=== PATIENT | male | born 2000 | race Two or more races ===

== ENCOUNTER → 2025-03-07 | Emergency (ER) | payer OTHER ==
[~2025-03-07] VITALS: Ht 167.6 cm; Wt 55.8 kg
[~2025-03-07] MED LIST: CARAFATE1 GM PO; FAMOTIDINE/PF 20 MG/2 ML VIAL IV ONE; FAMOTIDINE/PF 20 MG/2 ML VIAL ONE; FLONASE16 GM; ONDANSETRON HCL 2 MG/ML VIAL IV ONE; ONDANSETRON HCL 2 MG/ML VIAL ONE; ONDANSETRON ODT4 MG PO; PEPCID AC10 MG; PEPCID AC20 MG PO
[2025-03-07 15:40] LABS: BASO % 0.4 % (0.1-1.2); EOS # 0.07 (0.04-0.54); EOS % 1.3 % (0.7-7.0); HEMATOCRIT 42.6 % (40.1-51.0); HEMOGLOBIN 14.4 g/dL (13.7-17.5); LYMPH # 1.45 (1.18-3.74); MONO # 0.45 (0.24-0.82); MONO % 8.1 % (4.7-12.5); NEUT # 3.58 (1.56-6.13); PLATELET COUNT 212 K/uL (163-369); RED BLOOD COUNT 4.96 M/uL (4.63-6.08); RED CELL DISTRIBUTION WIDTH 11.9 % (11.6-14.4)
[2025-03-07 16:08] LABS: ALBUMIN 3.9 gm/dL (3.4-5.0); BILIRUBIN TOTAL 0.73 mg/dL (0.3-1.2); CALCIUM 8.9 mg/dL (8.5-10.1); CREATININE SERUM 1.1 mg/dL (0.70-1.30); GFR 82.24; GLOBULINA 2.8 G/DL (2.4-3.5); POTASSIUM 3.97 mEq/L (3.5-5.1); TOTAL PROTEIN 6.7 gm/dL (6.4-8.2)
[2025-03-07 16:25] LABS: COVID-19 AG NEGATIVE (NEGATIVE)
[2025-03-07 16:27] LABS: INFLUENZA A AG NEGATIVE (NEGATIVE); INFLUENZA B AG NEGATIVE (NEGATIVE)
== END | disposition home or self-care (01) ==
LOC: ER 14:11
PROVIDERS: General Practice
DX: K29.70 Gastritis, unspecified, without bleeding (principal); R53.81 Other malaise; Z20.822 Contact with and (suspected) exposure to COVID-19

== ENCOUNTER → 2025-03-13 | Emergency (ER) | payer OTHER ==
[~2025-03-13] VITALS: Ht 167.6 cm; Wt 56.7 kg
[~2025-03-13] MED LIST changes: -FAMOTIDINE/PF 20 MG/2 ML VIAL IV ONE; -FAMOTIDINE/PF 20 MG/2 ML VIAL ONE; +KETOROLAC TROMETHAMINE 30 MG VIAL IM ONE; +KETOROLAC TROMETHAMINE 30 MG VIAL ONE; -ONDANSETRON HCL 2 MG/ML VIAL IV ONE; -ONDANSETRON HCL 2 MG/ML VIAL ONE; +TUSSIN DM LIQU118 ML PO; +ZYRTEC10 MG PO; +hydrOXYzine PAMOATE 25 MG CAPSULE PO ONE
[2025-03-13 19:05] LABS: BASO % 0.5 % (0.1-1.2); EOS # 0.08 (0.04-0.54); EOS % 1.2 % (0.7-7.0); HEMATOCRIT 48.6 % (40.1-51.0); HEMOGLOBIN 16.9 g/dL (13.7-17.5); LYMPH % 21.2 % (19.3-53.1); MEAN CORPUSCULAR HEMOGLOBIN 29.3 pg (25.6-32.2); MONO # 0.44 (0.24-0.82); MONO % 6.7 % (4.7-12.5); NEUT # 4.62 (1.56-6.13); NEUT % 70.1 % (34.0-71.1); PLATELET COUNT 268 K/uL (163-369); RED BLOOD COUNT 5.76 M/uL (4.63-6.08); RED CELL DISTRIBUTION WIDTH 11.6 % (11.6-14.4)
[2025-03-13 19:23] LABS: COVID-19 AG POSITIVE (NEGATIVE); INFLUENZA A AG NEGATIVE (NEGATIVE); INFLUENZA B AG NEGATIVE (NEGATIVE)
[2025-03-13 19:24] LABS: ALBUMIN 4.8 gm/dL (3.4-5.0); BILIRUBIN TOTAL 0.89 mg/dL (0.3-1.2); CALCIUM 9.9 mg/dL (8.5-10.1); CREATININE SERUM 1.08 mg/dL (0.70-1.30); GLOBULINA 3.4 G/DL (2.4-3.5); POTASSIUM 4.29 mEq/L (3.5-5.1); TOTAL PROTEIN 8.2 gm/dL (6.4-8.2)
== END | disposition home or self-care (01) ==
LOC: ER 15:13
PROVIDERS: Preventive Medicine Public Health & General Preventive Medicine
DX: U07.1 COVID-19 (principal); R07.89 Other chest pain

== ENCOUNTER 2025-06-12 19:59 | Emergency (ER) | payer OTHER ==
[~2025-06-12] VITALS: Ht 167.6 cm; Wt 58.1 kg
[~2025-06-12 19:59] MED LIST changes: -KETOROLAC TROMETHAMINE 30 MG VIAL IM ONE; -KETOROLAC TROMETHAMINE 30 MG VIAL ONE; -hydrOXYzine PAMOATE 25 MG CAPSULE PO ONE
[2025-06-12] MEDS ORDERED: KETOROLAC TROMETHAMINE 15 MG VIAL IV STA (22:52)
[2025-06-12] MEDS ORDERED: FAMOTIDINE/PF 20 MG/2 ML VIAL IV PUSH STA (22:52)
[2025-06-12] MEDS ORDERED: KETOROLAC TROMETHAMINE 30 MG VIAL ONE (23:32)
[2025-06-12] MEDS ORDERED: FAMOTIDINE/PF 20 MG/2 ML VIAL ONE (23:33)
== END 2025-06-13 01:16 | disposition home or self-care (01) ==
LOC: ER 19:59
DX: R07.89 Other chest pain (principal)
CPT/HCPCS: 36415; 71046; 96365; 99283; J1885

== ENCOUNTER 2025-06-15 18:48 | Emergency (ER) | payer OTHER ==
[~2025-06-15] VITALS: Ht 167.6 cm; Wt 58.1 kg
[2025-06-15] MEDS ORDERED: METHYLPREDNISOLONE SOD SUCC 125 MG VIAL IV ONE (19:30)
[2025-06-15] MEDS ORDERED: LEVALBUTEROL HCL 1.25 MG/3 ML SOLUTION IH ONE ×2 (19:30→20:09)
[2025-06-15] MEDS ORDERED: METHYLPREDNISOLONE SOD SUCC 125 MG VIAL ONE (20:26)
[2025-06-15 20:48] LABS: BASO % 0.3 % (0.1-1.2); EOS # 0.10 (0.04-0.54); EOS % 1.6 % (0.7-7.0); LYMPH # 1.95 (1.18-3.74); LYMPH % 32.1 % (19.3-53.1); MEAN PLATELET VOLUME 8.90 fl (9.4-12.4); MONO # 0.51 (0.24-0.82); MONO % 8.4 % (4.7-12.5); NEUT # 3.48 (1.56-6.13); NEUT % 57.4 % (34.0-71.1); RED CELL DISTRIBUTION WIDTH 11.4 % (11.6-14.4)
[2025-06-15 20:58] LABS: ABG PH 7.446 (7.35-7.45); ABG PO2 101.5 mmHg (80-100); BICARBONATE 23.4 mmol/l (23-25)
[2025-06-15 20:59] LABS: o2 21 %
[2025-06-15 21:21] LABS: ALT/SGPT 20.0 U/L (12-78); AST/SGOT 20.0 U/L (15-37); BILIRUBIN TOTAL 0.43 mg/dL (0.3-1.2); BUN CREA RATIO 15.0 (7.0-25.0); CREATININE SERUM 1.15 mg/dL (0.70-1.30); GFR 77.48; GLOBULINA 3.1 G/DL (2.4-3.5); GLUCOSE FASTING 98.0 mg/dL (65-100); OSMOLALITY SERUM 283.0 MOSM/KG (275-295)
[2025-06-15 21:40] LABS: COVID-19 AG NEGATIVE (NEGATIVE)
[2025-06-15] MEDS ORDERED: NORFLEX100MG PO (22:49)
[2025-06-15] MEDS ORDERED: LEVALBUTER0.63 MG/3 IH (22:49)
== END 2025-06-15 23:05 | disposition home or self-care (01) ==
LOC: ER 18:49
PROVIDERS: General Practice
DX: R07.81 Pleurodynia (principal); Z20.822 Contact with and (suspected) exposure to COVID-19; Z87.09 Personal history of other diseases of the respiratory system

== ENCOUNTER 2025-06-23 18:37 | Emergency (ER) | payer OTHER ==
[~2025-06-23] VITALS: Ht 167.6 cm; Wt 63.5 kg
[~2025-06-23 18:37] MED LIST changes: +LEVALBUTER0.63 MG/3 IH; +NORFLEX100MG PO
[2025-06-23] MEDS ORDERED: METHYLPREDNISOLONE SOD SUCC 125 MG VIAL IV ONE (20:15)
[2025-06-23] MEDS ORDERED: BENZONATATE 100 MG CAPSULE PO ONE (20:30)
[2025-06-23] MEDS ORDERED: METHYLPREDNISOLONE SOD SUCC 125 MG VIAL ONE (21:17)
[2025-06-23 21:54] LABS: BASO % 0.2 % (0.1-1.2); EOS # 0.12 (0.04-0.54); EOS % 1.4 % (0.7-7.0); LYMPH # 2.13 (1.18-3.74); LYMPH % 24.3 % (19.3-53.1); MEAN PLATELET VOLUME 8.80 fl (9.4-12.4); MONO # 0.61 (0.24-0.82); MONO % 7.0 % (4.7-12.5); NEUT # 5.86 (1.56-6.13); NEUT % 66.9 % (34.0-71.1); RED CELL DISTRIBUTION WIDTH 11.2 % (11.6-14.4)
[2025-06-24 00:23] LABS: COVID-19 AG NEGATIVE (NEGATIVE)
[2025-06-24 01:19] LABS: ALT/SGPT 33.0 U/L (12-78); AST/SGOT 26.0 U/L (15-37); BILIRUBIN TOTAL 0.72 mg/dL (0.3-1.2); BUN CREA RATIO 15.0 (7.0-25.0); CREATININE SERUM 1.07 mg/dL (0.70-1.30); GFR 84.2; GLOBULINA 3.4 G/DL (2.4-3.5); GLUCOSE FASTING 129.0 mg/dL (65-100); OSMOLALITY SERUM 279.0 MOSM/KG (275-295)
== END 2025-06-24 03:58 | disposition home or self-care (01) ==
LOC: ER 18:37
PROVIDERS: General Practice
DX: J06.9 Acute upper respiratory infection, unspecified (principal); M94.0 Chondrocostal junction syndrome [Tietze]; R05.8 Other specified cough; R07.9 Chest pain, unspecified; R05.9 Cough, unspecified; Z20.822 Contact with and (suspected) exposure to COVID-19

== ENCOUNTER 2025-07-19 02:03 | Emergency (ER) | payer OTHER ==
[~2025-07-19] VITALS: Ht 167.6 cm; Wt 54.4 kg
[2025-07-19] MEDS ORDERED: FAMOTIDINE/PF 20 MG/2 ML VIAL IV PUSH STA (03:58)
[2025-07-19] MEDS ORDERED: HYOSCYAMINE SULFATE 0.125 MG TAB.SUBL SL STA (03:58)
[2025-07-19] MEDS ORDERED: ONDANSETRON HCL 2 MG/ML VIAL IV STA (03:58)
[2025-07-19] MEDS ORDERED: HYOSCYAMINE SULFATE 0.125 MG TAB.SUBL ONE (04:10)
[2025-07-19] MEDS ORDERED: ONDANSETRON HCL 2 MG/ML VIAL ONE (04:10)
[2025-07-19] MEDS ORDERED: FAMOTIDINE/PF 20 MG/2 ML VIAL ONE (04:10)
[2025-07-19 04:31] LABS: BASO % 0.5 % (0.1-1.2); EOS # 0.04 (0.04-0.54); EOS % 0.9 % (0.7-7.0); LYMPH # 1.92 (1.18-3.74); LYMPH % 43.4 % (19.3-53.1); MEAN PLATELET VOLUME 8.90 fl (9.4-12.4); MONO # 0.37 (0.24-0.82); MONO % 8.4 % (4.7-12.5); NEUT # 2.06 (1.56-6.13); NEUT % 46.6 % (34.0-71.1); RED CELL DISTRIBUTION WIDTH 11.7 % (11.6-14.4)
[2025-07-19 05:03] LABS: BUN CREA RATIO 14.0 (7.0-25.0); CREATININE SERUM 1.03 mg/dL (0.70-1.30); GFR 87.99; GLUCOSE FASTING 97.0 mg/dL (65-100); OSMOLALITY SERUM 285.0 MOSM/KG (275-295)
[2025-07-19 05:06] LABS: URINE APPEARANCE Clear; URINE BILIRRUBIN Negative (NEGATIVE); URINE BLOOD Negative; URINE COLOR Yellow; URINE GLUCOSE Negative (NEGATIVE); URINE KETONE Negative (NEGATIVE); URINE LEUKOCYTE Negative; URINE NITRATE Negative; URINE PROTEIN Negative (NEGATIVE); URINE UROBILINOGEN 0.2 E.U./dl
[2025-07-19 05:09] LABS: URINE BACTERIA 16.7 uL (0.0-1933); URINE WBC 2.1 uL (0.0-23.2)
[2025-07-19 05:20] LABS: URINE CAST 0.00 uL (0.0-1.40); URINE EPITHELIAL CELLS 0.4 uL (0.0-38.8); URINE RBC 1.0 uL (0.0-20.8)
[2025-07-19] MEDS ORDERED: PEPCID40 MG PO (07:18)
[2025-07-19] MEDS ORDERED: LEVSIN/SL0.125 MG SL (07:18)
[2025-07-19] MEDS ORDERED: ZOFRAN8 MG PO (07:18)
== END 2025-07-19 08:40 ==
LOC: ER 02:03 → EDBD 02:03 → ER 03:07
PROVIDERS: General Practice
DX: R10.13 Epigastric pain (principal); R10.9 Unspecified abdominal pain